=== PATIENT | female | born 1955 | race Caucasian/White ===

== ENCOUNTER → 2024-01-07 06:58 | Outpatient (REF) | payer MEDICARE, SELFPAY | LOC: MRI 3T 06:58 | PROVIDERS: ATTENDING PHYSICIAN Pain Medicine Interventional Pain Medicine; FAMILY PHYSICIAN Internal Medicine Geriatric Medicine | DX: M54.14 Radiculopathy, thoracic region (principal) | CPT/HCPCS: 72146 ==

== ENCOUNTER → 2024-05-12 13:54 | Outpatient (REF) | payer MEDICARE, SELFPAY | LOC: HWRAD 13:54 | PROVIDERS: ATTENDING PHYSICIAN Internal Medicine Geriatric Medicine | DX: M54.16 Radiculopathy, lumbar region (principal); M54.9 Dorsalgia, unspecified; M17.11 Unilateral primary osteoarthritis, right knee; R68.89 Other general symptoms and signs; E55.9 Vitamin D deficiency, unspecified; Z00.00 Encounter for general adult medical examination without abnormal findings; Z13.31 Encounter for screening for depression | CPT/HCPCS: 75571 ==

== ENCOUNTER → 2024-05-12 14:40 | Outpatient (REF) | payer MEDICARE, SELFPAY ==
[2024-05-12 15:26] LABS: % Basophils 0.5 % (0-2); % Eosinophils 2.7 % (0-6); % Immature Granulocytes 0.4 % (0-0.5); % Lymphocytes 26.4 % (20.5-51.1); Absolute Eosinophils 0.2 10^3/uL (0-0.7); Absolute Monocytes 0.5 10^3/uL (0.1-0.6); Absolute Neutrophils 4.7 10^3/uL (1.4-6.5); Hematocrit 38.3 % (37.0-47.0); Mean Corp Hgb Conc. 33.9 g/dL (33.0-37.0); Mean Corpuscular Hgb 30.2 pg (27.0-31.0); Mean Corpuscular Volume 88.9 fL (81.0-99.0); Mean Platelet Volume 10.1 fL (7.4-10.4); Nucleated Red Blood Cells % 0 %; Platelet Count 294 10^3/uL (130-400); Red Blood Cell Count 4.31 10^6/uL (4.20-5.40); Red Cell Dist. Width 12.4 % (11.5-14.5); White Blood Cell Count 7.4 10^3/uL (4.8-10.8)
[2024-05-12 15:38] LABS: Erythrocyte Sed Rate 16 mm/hour (0-20)
[2024-05-12 15:47] LABS: ALT (SGPT) 61 U/L (0-35); AST (SGOT) 39 U/L (14-36); Albumin 4.5 g/dl (3.5-5.0); Alkaline Phosphatase 89 U/L (38-126); Blood Urea Nitrogen 14 mg/dl (7-17); Calcium 9.6 mg/dl (8.4-10.2); Carbon Dioxide 26 mmol/L (22-30); Chloride 103 mmol/L (98-107); Glucose 101 mg/dl (70-99); HDL Cholesterol 104 mg/dl; LDL Cholesterol, Calculated 57 mg/dl; Potassium 4.1 mmol/L (3.5-5.1); Sodium 140 mmol/L (135-145); Total Bilirubin 0.5 mg/dl (0.2-1.3); Total Cholesterol 200 mg/dl (50-199); Total Protein 7.4 g/dl (6.3-8.2); Triglyceride 198 mg/dl (10-149); Very Low Density Lipoprotein 39 mg/dl (0-30); eGFR > 60.00
[2024-05-12 16:20] LABS: Free T4 0.94 ng/dl (0.78-2.19); Vitamin D, 25-OH*** 30.6 ng/mL (30-80)
[2024-05-12 16:34] LABS: TSH 1.85 uIU/ml (0.47-4.68)
[2024-05-12 17:16] LABS: C-Reactive Protein < 5.00 mg/L (0.0-10.00)
[2024-05-15 00:55] LABS: ANA, IgG Reflex to HEp-2 None Detected (None Detected)
[2024-05-15 08:08] LABS: CCP Antibody IgG/IgA 5 Units (0-19)
== END ==
LOC: REG 14:40
PROVIDERS: ATTENDING PHYSICIAN Internal Medicine Geriatric Medicine
DX: Z00.00 Encounter for general adult medical examination without abnormal findings (principal); M54.16 Radiculopathy, lumbar region; M54.9 Dorsalgia, unspecified; M17.11 Unilateral primary osteoarthritis, right knee; Z13.31 Encounter for screening for depression; R68.89 Other general symptoms and signs; E55.9 Vitamin D deficiency, unspecified; Z79.899 Other long term (current) drug therapy
CPT/HCPCS: 36415; 75571; 80053; 80061; 82306; 84439; 84443; 85025; 85652; 86038; 86140; 86200; 86430

== ENCOUNTER → 2025-03-26 11:18 | Outpatient (REF) | payer MEDICARE, SELFPAY | LOC: RCS 11:18 | PROVIDERS: ATTENDING PHYSICIAN Pain Medicine Interventional Pain Medicine; FAMILY PHYSICIAN Internal Medicine Geriatric Medicine | DX: Z01.818 Encounter for other preprocedural examination (principal) | CPT/HCPCS: 93005 ==